=== PATIENT | female | born 1955 | race Two or more races ===

== ENCOUNTER 2022-01-05 22:08 | Emergency (ER) | payer MEDICARE, MEDICAID ==
[~2022-01-05] VITALS: Ht 152.4 cm; Wt 140.0 kg
[2022-01-05 23:57] LABS: Basophils # (auto) 0.1 10 ^3/uL (0-0.2); Eosinophils # (auto) 0 10 ^3/uL (0-0.8); Eosinophils % (auto) 0.1 % (0.0-7.0); Lymphocytes # (auto) 0.5 10 ^3/uL (0.4-5.4); Lymphocytes % (auto) 5.9 % (10.0-50.0); Monocytes # (auto) 0.7 10 ^3/uL (0-1.3); Neutrophils # (auto) 7.3 10 ^3/uL (1.6-8.6)
[2022-01-05 23:59] LABS: Basophils % (auto) 0.6 % (0.0-2.0); Hemoglobin 7.4 g/dL (12.2-16.2); Mean Corpuscular Hemoglobin 32.1 pg (28.0-32.0); Mean Corpuscular Hgb Conc. 32.2 g/dL (32.0-36.0); Mean Corpuscular Volume 99.7 fL (80.0-100.0); Monocytes % (auto) 8.1 % (0.0-12.0); Neutrophils % (auto) 85.3 % (37.0-80.0); Nucleated Red Blood Cells % 0.2 %; Red Blood Cells 2.31 10^6/uL (4.0-5.20); Red Cell Distribution Width 19.5 % (11.8-14.3); White Blood Cell 8.5 10^3/uL (4.4-10.8)
[2022-01-06 00:17] LABS: Albumin 2.6 g/dL (3.4-5.0); Calcium 7.8 mg/dL (8.5-10.1); Potassium 3.5 mmol/L (3.5-5.1)
[2022-01-06 00:22] LABS: Bilirubin, Total 0.7 mg/dL (0.2-1.0); Total Protein 7.8 g/dL (6.4-8.2)
[2022-01-06 01:00] VITALS: BP 142/69
[2022-01-12] MEDS ORDERED: CARV3.1240 PO (09:58)
[2022-01-12] MEDS ORDERED: LEVO100T8 PO (09:58)
[2022-01-12] MEDS ORDERED: TEMA30CA PO (09:58)
[2022-01-12] MEDS ORDERED: HYDR-4902 PO (09:58)
[2022-01-12] MEDS ORDERED: SILD20TA12 PO (09:58)
[2022-01-12] MEDS ORDERED: B-COTAB10 PO (09:58)
[2022-01-12] MEDS ORDERED: PANT40TA2 PO (09:58)
[2022-01-12] MEDS ORDERED: ATOR40TA52 PO (09:58)
[2022-01-12] MEDS ORDERED: ALPR0.5T PO (18:42)
== END 2022-01-06 01:58 | disposition home or self-care (01) ==
LOC: ER 22:08 → EDBD 22:08 → ER 01-06 01:55
DX: R11.2 Nausea with vomiting, unspecified (principal); N18.6 End stage renal disease; I48.91 Unspecified atrial fibrillation; I25.2 Old myocardial infarction; Z99.2 Dependence on renal dialysis; Z95.0 Presence of cardiac pacemaker
CPT/HCPCS: 36415; 80053; 84484; 85025; 93005